=== PATIENT | male | born 1970 | race Caucasian/White ===

== ENCOUNTER 2017-12-24 07:51 | Outpatient (CLI) | payer BC ==
[~2017-12-24 07:51] MED LIST: Iopamidol 370 76% 100 ML VIAL ONE
--- NOTE | 2017-12-24 10:21 | CT ---
CT ANGIOGRAM THORAX WITH IV CONTRAST AND 3D RECONSTRUCTIONS: Date: 12/24/17 HISTORY: Nonrheumatic aortic valve stenosis. History of prior surgery with aortic valve replaced in 2015. COMPARISON: None available. FINDINGS: There are postsurgical changes related to aortic valve replacement with postsurgical changes also see n involving the ascending thoracic aorta. There is no evidence of an aortic dissection. No aneurysmal dilatation of the thoracic aorta is appreciated. No filling defects are seen in the pulmonary arteries to suggest a pulmonary embolus. There is no pericardial effusion identified. There is linear scarring versus atelectasis at the medial right lower lobe. There is calcified granul ousmane seen within the right middle lobe. The lungs otherwise appear clear. Median sternotomy wires are noted in place. Images of the upper abdomen demonstrate subcentimeter, too small to characterize, hypodense lesions i n limited visualized superior pole right kidney. There is also a subcentimeter hypodense lesion withi n the posterior aspect dome of the liver. Calcified granulomata are seen in the visualized liver and spleen. IMPRESSION: 1. Postsurgical changes related to aortic valve replacement with postsurgical changes also involving the ascending thoracic aorta. No aortic dissection is visualized. 2. No CT evidence of pulmonary embolus. 3. Subcentimeter, too small to characterize, hypodense lesion in the liver, as well as in the visual ized superior pole right kidney. POS: ANNETTE
== END 2017-12-24 07:52 | disposition home or self-care (01) ==
LOC: CT 07:51
PROVIDERS: ATTEND Internal Medicine Cardiovascular Disease
DX: I35.0 Nonrheumatic aortic (valve) stenosis (principal); I71.2 Thoracic aortic aneurysm, without rupture; R93.5 Abnormal findings on diagnostic imaging of other abdominal regions, including retroperitoneum; Z98.890 Other specified postprocedural states
CPT/HCPCS: 71275